=== PATIENT | male | born 1985 | race Asian ===

== ENCOUNTER 2019-08-04 16:57 | Emergency (ER) | payer OTHER ==
[2019-08-04 17:57] LABS: Absolute Lymphocytes (CBC) 0.4 K/uL (0.7-4.9); Basophils % 0.1 % (0-1.3); Hematocrit 41.8 % (39.6-49.0); Lymphocytes % 4.8 % (15.3-44.8); MPV 7.5 fL (7.6-11.3); RBC Red Blood Cell Count 4.66 M/uL (4.33-5.43)
[2019-08-04 18:15] LABS: Albumin 3.7 g/dL (3.4-5.0); Bilirubin Direct 0.3 mg/dL (0-0.2); Bilirubin Total 1.1 mg/dL (0.2-1.0); Potassium 3.1 mmol/L (3.5-5.1); Protein, Total 7.1 g/dL (6.4-8.2)
--- NOTE | 2019-08-04 18:26 | RAD REPORT ---
EXAM DESCRIPTION: CT - Abdomen Pelvis W Contrast - 08/04/2019 6:11 pm CLINICAL HISTORY: ABD PAINabdominal pain, vomiting COMPARISON: None. TECHNIQUE: Biphasic, helical CT imaging of the abdomen and pelvis was performed following 100 ml non -ionic IV contrast. Oral contrast was given. All CT scans are performed using dose optimization technique as appropriate and may include automated exposure control or mA/KV adjustment according to patient size. FINDINGS: No suspicious findings in the lung bases. The liver, spleen, and pancreas show no suspicious findings. Gallbladder and biliary tree are also wi thout suspicious finding. Symmetric renal function is seen with no hydronephrosis or suspicious renal mass. No pyelonephritis o r acute parenchymal process. No bladder abnormalities. No adrenal abnormalities. No gastric dilatation or wall thickening. There are numerous fluid filled nondilated small bowel loop s. Air and stool are present in nondilated colon. Appendix is normal. No free air, free fluid or inf lammatory stranding. No hernia, mass or bulky lymphadenopathy. No suspicious bony findings. IMPRESSION: Mild small bowel enteritis pattern. No obstruction or emergent findings.
[2019-08-04] MEDS ORDERED: POTASSIUM CL SA 10 MEQ TAB PO ONE (18:35)
--- NOTE | 2019-08-04 19:08 | ER ---
Nurse's Notes [facility] Name: Mayank Haro Age: 34 yrs Sex: Male : 1985 Arrival Date: 08/04/2019 Time: 16:58 Bed 14 Private MD: Diagnosis: Noninfective gastroenteritis and colitis, unspecified Presentation: 08/04 17:03 Presenting complaint: Patient states: Vomiting since 1200 this morning. Also reports aj1 numbness in his right hand and foot. Denies abdominal pain. Ambulated to triage with a steady gait. Reports generalized weakness. Transition of care: patient was not received from another setting of care. Onset of symptoms was August 04, 2019 at 00:00. Risk Assessment: Do you want to hurt yourself or someone else? Patient reports no desire to harm self or others. Initial Sepsis Screen: Does the patient meet any 2 criteria? No. Patient's initial sepsis screen is negative. Does the patient have a suspected source of infection? No. Patient's initial sepsis screen is negative. Care prior to arrival: None. 17:03 Method Of Arrival: Ambulatory aj1 17:03 Acuity: MIKAYLA 3 aj1 Triage Assessment: 17:06 General: Appears in no apparent distress. comfortable, Behavior is calm, cooperative, aj1 appropriate for age. Pain: Denies pain. Neuro: Level of Consciousness is awake, alert, obeys commands. Cardiovascular: Patient's skin is warm and dry. Respiratory: Airway is patent Respiratory effort is even, unlabored, Respiratory pattern is regular, symmetrical. GI: Reports vomiting. Historical: - Allergies: 17:06 No Known Allergies; aj1 - PMHx: 17:06 None; aj1 - Immunization history:: Adult Immunizations up to date. - Social history:: Smoking status: Patient/guardian denies using tobacco. - Ebola Screening: : Patient denies travel to an Ebola-affected area in the 21 days before illness onset. Screenin:15 Abuse screen: Denies threats or abuse. Nutritional screening: No deficits noted. rb1 Tuberculosis screening: No symptoms or risk factors identified. Fall Risk None identified. Assessment: 17:15 General: Appears in no apparent distress. comfortable, Behavior is calm, cooperative, rb1 Reports fever for fatigue for 12-24 hours. Pain: Denies pain. Neuro: Level of Consciousness is awake, alert, obeys commands, Oriented to person, place, time, situation. Cardiovascular: Capillary refill < 3 seconds is brisk in bilateral fingers. Respiratory: Airway is patent Respiratory effort is even, unlabored, Respiratory pattern is regular, symmetrical. GI: Reports nausea, vomiting. : No signs and/or symptoms were reported regarding the genitourinary system. Derm: Skin is pink, warm \T\ dry. 18:10 Reassessment: Pt. went to CT. rb1 18:39 Reassessment: Patient appears in no apparent distress at this time. Patient and/or rb1 family updated on plan of care and expected duration. Pain level reassessed. Patient is alert, oriented x 3, equal unlabored respirations, skin warm/dry/pink. Patient denies pain at this time. 19:20 Reassessment: Pt. requested pain medication before being discharged. Provider notified. rb1 Vital Signs: 17:06 BP 119 / 67; Pulse 86; Resp 16; Temp 97.6; Pulse Ox 100% on R/A; Weight 62 kg (R); aj1 Height 5 ft. 7 in. (172 cm) (R); Pain 0/10; 18:10 rb1 18:38 BP 111 / 67; Pulse 71; Resp 15; Temp 97.8(O); Pulse Ox 98% on R/A; Pain 0/10; rb1 19:30 BP 129 / 87; Pulse 75; Resp 16; Pulse Ox 100% on R/A; Pain 7/10; rb1 17:06 Body Mass Index 20.96 (62.00 kg, 172 cm) aj1 18:[address] [facility] ED Course: 16:58 Patient arrived in ED. as 17:06 Triage completed. aj1 17:06 Arm band placed on Patient placed in an exam room. aj1 17:08 Rhiannon Romero FNP is PHCP. mo 17:08 Aiden Kirkland MD is Attending Physician. nh 17:15 Patient has correct armband on for positive identification. Bed in low position. Call rb1 light in reach. Side rails up X 1. Pulse ox on. NIBP on. Warm blanket given. 17:45 Inserted saline lock: 22 gauge in right antecubital area, using aseptic technique. rb1 Blood collected. 17:51 Sirena Ruvalcaba, RN is Primary Nurse. rb1 17:55 Flu Sent. rb1 18:08 CT completed. Patient tolerated procedure well. Patient moved back from CT. bq 18:12 CT Abd/Pelvis - IV Contrast Only In Process Unspecified. EDMS 19:34 No provider procedures requiring assistance completed. IV discontinued, intact, rb1 bleeding controlled, No redness/swelling at site. Pressure dressing applied. Administered Medications: 18:38 Drug: Potassium Chloride 20 mEq Route: PO; rb1 19:00 Follow up: Response: No adverse reaction rb1 19:29 Drug: TORadol 30 mg Route: IVP; Site: right antecubital; rb1 19:34 Follow up: Response: No adverse reaction rb1 Outcome: 19:07 Discharge ordered by MD. nh 19:34 Discharged to home ambulatory, with family. rb1 19:34 Condition: stable 19:34 Discharge instructions given to patient, Instructed on discharge instructions, follow up and referral plans. medication usage, Demonstrated understanding of instructions, follow-up care, medications, Prescriptions given X 1. 19:40 Patient left the ED. lp1 Signatures: Dispatcher [employer] EDMS Arianna Antonio RN RN aj1 Rhiannon Romero, SALES AND OPERATIONS TRAINEE SALES AND OPERATIONS TRAINEE mo Phyllis Lu Amelia as Pena, Laura RN RN lp1 Sirena Ruvalcaba, RN RN rb1
--- NOTE | 2019-08-04 19:09 | EDPHYS ---
Physician Documentation [facility] Name: Mayank Haro Age: 34 yrs Sex: Male : 1985 Arrival Date: 08/04/2019 Time: 16:58 Bed 14 Private MD: ED Physician Aiden Kirkland HPI: 08/04 19:05 This 34 yrs old Male presents to ER via Ambulatory with complaints of Vomiting, nh Fever. 19:05 The patient presents to the emergency department with nausea, vomiting, diarrhea, nh abdominal pain. Onset: The symptoms/episode began/occurred acutely, yesterday. Possible causes: unknown. The symptoms are aggravated by food , The symptoms are alleviated by nothing. Associated signs and symptoms: The patient has no apparent associated signs or symptoms. Severity of symptoms: At their worst the symptoms were moderate just prior to arrival, in the emergency department the symptoms have improved. The patient has not experienced similar symptoms in the past. The patient has not recently seen a physician. Historical: - Allergies: 17:06 No Known Allergies; aj1 - PMHx: 17:06 None; aj1 - Immunization history:: Adult Immunizations up to date. - Social history:: Smoking status: Patient/guardian denies using tobacco. - Ebola Screening: : Patient denies travel to an Ebola-affected area in the 21 days before illness onset. ROS: 19:05 Constitutional: Negative for fever, chills, and weight loss, Eyes: Negative for injury, nh pain, redness, and discharge, ENT: Negative for injury, pain, and discharge, Neck: Negative for injury, pain, and swelling, Cardiovascular: Negative for chest pain, palpitations, and edema, Respiratory: Negative for shortness of breath, cough, wheezing, and pleuritic chest pain, Back: Negative for injury and pain, : Negative for injury, bleeding, discharge, and swelling, MS/Extremity: Negative for injury and deformity, Skin: Negative for injury, rash, and discoloration, Neuro: Negative for headache, weakness, numbness, tingling, and seizure. 19:05 Abdomen/GI: Positive for abdominal pain, nausea, vomiting, and diarrhea. Exam: 19:05 Constitutional: This is a well developed, well nourished patient who is awake, alert, nh and in no acute distress. Head/Face: Normocephalic, atraumatic. Eyes: Pupils equal round and reactive to light, extra-ocular motions intact. Lids and lashes normal. Conjunctiva and sclera are non-icteric and not injected. Cornea within normal limits. Periorbital areas with no swelling, redness, or edema. ENT: Nares patent. No nasal discharge, no septal abnormalities noted. Tympanic membranes are normal and external auditory canals are clear. Oropharynx with no redness, swelling, or masses, exudates, or evidence of obstruction, uvula midline. Mucous membranes moist. Neck: Trachea midline, no thyromegaly or masses palpated, and no cervical lymphadenopathy. Supple, full range of motion without nuchal rigidity, or vertebral point tenderness. No Meningismus. Chest/axilla: Normal chest wall appearance and motion. Nontender with no deformity. No lesions are appreciated. Cardiovascular: Regular rate and rhythm with a normal S1 and S2. No gallops, murmurs, or rubs. Normal PMI, no JVD. No pulse deficits. Respiratory: Lungs have equal breath sounds bilaterally, clear to auscultation and percussion. No rales, rhonchi or wheezes noted. No increased work of breathing, no retractions or nasal flaring. Abdomen/GI: Soft, non-tender, with normal bowel sounds. No distension or tympany. No guarding or rebound. No evidence of tenderness throughout. Back: No spinal tenderness. No costovertebral tenderness. Full range of motion. Skin: Warm, dry with normal turgor. Normal color with no rashes, no lesions, and no evidence of cellulitis. MS/ Extremity: Pulses equal, no cyanosis. Neurovascular intact. Full, normal range of motion. Neuro: Awake and alert, GCS 15, oriented to person, place, time, and situation. Cranial nerves II-XII grossly intact. Motor strength 5/5 in all extremities. Sensory grossly intact. Cerebellar exam normal. Normal gait. Psych: Awake, alert, with orientation to person, place and time. Behavior, mood, and affect are within normal limits. Vital Signs: 17:06 BP 119 / 67; Pulse 86; Resp 16; Temp 97.6; Pulse Ox 100% on R/A; Weight 62 kg (R); aj1 Height 5 ft. 7 in. (172 cm) (R); Pain 0/10; 18:10 rb1 18:38 BP 111 / 67; Pulse 71; Resp 15; Temp 97.8(O); Pulse Ox 98% on R/A; Pain 0/10; rb1 19:30 BP 129 / 87; Pulse 75; Resp 16; Pulse Ox 100% on R/A; Pain 7/10; rb1 17:06 Body Mass Index 20.96 (62.00 kg, 172 cm) aj1 18:[address] rb1 MDM: 17:09 Patient medically screened. nh 19:05 Data reviewed: vital signs, nurses notes, lab test result(s), radiologic studies, I nh have discussed the patient's presentation/case with the attending Emergency Department Physician; and as a result, I will discharge patient. Counseling: I had a detailed discussion with the patient and/or guardian regarding: the historical points, exam findings, and any diagnostic results supporting the discharge/admit diagnosis, the need for outpatient follow up, to return to the emergency department if symptoms worsen or persist or if there are any questions or concerns that arise at home. 08/04 17:16 Order name: Basic Metabolic Panel; Complete Time: 18:23 tx 08/04 17:16 Order name: CBC with Diff tx 08/04 17:16 Order name: Creatinine for Radiology; Complete Time: 18:23 tx 08/04 17:16 Order name: Hepatic Function; Complete Time: 18:23 tx 08/04 17:16 Order name: Lipase; Complete Time: 18:23 tx 08/04 17:16 Order name: Flu; Complete Time: 18:23 tx 08/04 17:16 Order name: IV Saline Lock; Complete Time: 17:55 tx 08/04 17:16 Order name: Labs collected and sent; Complete Time: 17:55 tx 08/04 17:16 Order name: CT Abd/Pelvis - IV Contrast Only; Complete Time: 18:37 tx 08/04 18:03 Order name: CBC Smear Scan EDMS Administered Medications: 18:38 Drug: Potassium Chloride 20 mEq Route: PO; rb1 19:00 Follow up: Response: No adverse reaction rb1 19:29 Drug: TORadol 30 mg Route: IVP; Site: right antecubital; rb1 19:34 Follow up: Response: No adverse reaction rb1 Disposition: 08/05 07:37 Co-signature as Attending Physician, Aiden Kirkland MD. rn Disposition: 08/04/19 19:07 Discharged to Home. Impression: Noninfective gastroenteritis and colitis, unspecified. - Condition is Stable. - Discharge Instructions: Viral Gastroenteritis, Adult. - Prescriptions for Zofran 4 mg Oral Tablet - take 1 tablet by ORAL route every 6 hours As needed; 20 tablet. - Medication Reconciliation Form, Thank You Letter, Antibiotic Education, Prescription Opioid Use form. - Follow up: Private Physician; When: 2 - 3 days; Reason: Recheck today's complaints. - Problem is new. - Symptoms are unchanged. Signatures: Dispatcher [employer] EDMS Arianna Antonio RN RN aj1 Rhiannon Romero, HYDRATE THICKENER OPERATOR HYDRATE THICKENER OPERATOR tx Aiden Kirkland MD MD rn Hermila White RN RN lp1 Sirena Ruvalcaba, RN RN rb1 Corrections: (The following items were deleted from the chart) 08/04 19:40 19:07 08/04/2019 19:07 Discharged to Home. Impression: Noninfective gastroenteritis and lp1 colitis, unspecified. Condition is Stable. Forms are Medication Reconciliation Form, Thank You Letter, Antibiotic Education, Prescription Opioid Use. Follow up: Private Physician; When: 2 - 3 days; Reason: Recheck today's complaints. Problem is new. Symptoms are unchanged. tx
[2019-08-04] MEDS ORDERED: KETOROLAC 30 MG/ML INJ ONE (19:25)
[2019-08-04 19:31] LABS: Blood Morphology Comment NOT SEEN (NOT SEEN); Platelet Estimate ADEQ; Urine White Blood Cell Casts OK
[2019-08-04 23:42] VITALS: O2SAT 100
[2019-08-04 23:46] VITALS: BP 129/87
[2019-08-04 23:48] VITALS: TEMP 97.8
== END 2019-08-04 19:40 | disposition home or self-care (01) ==
LOC: ER 16:57
DX: K52.9 Noninfective gastroenteritis and colitis, unspecified (principal)
CPT/HCPCS: 85025; 80048; 36415; 80076; 83690; 87804 ×2; 74177; 96374; 99284; Q9967